=== PATIENT | female | born 2000 | race American Indian/Alaskan Native ===

== ENCOUNTER 2020-05-25 01:00 | Inpatient (IN) | payer OTHER ==
[2020-05-25] MEDS ORDERED: AMPICILLIN/NS 2 GM/100 ML 2 GM/100 ML BAG IV ONE ×2 (01:02→01:15)
[2020-05-25] MEDS ORDERED: ePHEDrine SULFATE 50 MG/1 ML INJ IV PRN ×2 (01:13→01:36)
[2020-05-25] MEDS ORDERED: MINERAL OIL 30 ML ORAL LIQD PO PRN (01:13)
[2020-05-25] MEDS ORDERED: TERBUTALINE 1 MG/1 ML INJ SUB-Q PRN (01:13)
[2020-05-25] MEDS ORDERED: LIDOCAINE (2%) 20 MG/1 ML VIAL 20 ML MDV INFILTRATI ONE (01:13)
[2020-05-25] MEDS ORDERED: LACTATED RINGERS 1,000 ML IV SCH (01:15)
[2020-05-25] MEDS ORDERED: diphenhydrAMINE 25 MG CAP PO PRN (01:40)
[2020-05-25] MEDS ORDERED: MAGNESIUM HYDROXIDE (MOM) ORAL LIQD UDC PO PRN (01:40)
[2020-05-25] MEDS ORDERED: HYDROcodone/ACETAMINOPHEN 5-325 MG TAB PO PRN (01:40)
[2020-05-25] MEDS ORDERED: ACETAMINOPHEN 325 MG TAB PO PRN (01:40)
[2020-05-25] MEDS ORDERED: PROMETHAZINE 25 MG RECT SUPP PR PRN (01:40)
[2020-05-25] MEDS ORDERED: PROMETHAZINE 25 MG TAB PO PRN (01:40)
[2020-05-25] MEDS ORDERED: LANOLIN/ZINC/DIMETHICONE (LANSINOH) 7 GM TP PRN (01:40)
[2020-05-25] MEDS ORDERED: ONDANSETRON 4 MG/2 ML INJ IV PRN (01:40)
[2020-05-25] MEDS ORDERED: WITCH HAZEL/ GLYCERIN PAD TP PRN (01:40)
--- NOTE | 2020-05-25 01:46 | History and Physical Report ---
History of Present Illness Date of examination: 05/25/20 Date of admission: 05/25/20 01:00 Chief complaint: vaginal bleeding, suspected placental abruption History of present illness: I was called to the floor for heavy acute vaginal bleeding in this term patient. I ordered two large bore IVs,type and screen, and CBC STAT I ordered the OR to be opened and for the patient to be prepared for section. See Delivery note no PNR available, PNC at [facility]. Past History - Obstetrical History : 1 Medications and Allergies Allergies Allergy/AdvReac Type Severity Reaction Status Date / Time No Known Allergies Allergy Verified 05/25/20 01:21 Active Meds: Active Medications Ephedrine Sulfate (Ephedrine Sulfate) 10 mg IV Q2M PRN PRN Reason: Hypotension Ephedrine Sulfate (Ephedrine Sulfate) 10 mg IV Q2M PRN PRN Reason: Hypotension Oxytocin/Sodium Chloride (Pitocin/Ns 30 Unit/500ml) 30 units in 500 mls @ 2 mls/hr IV TITR FEMI; Protocol Lactated Ringer's (Lactated Ringers) 1,000 mls @ 125 mls/hr IV DIRECT FEMI Oxytocin/Sodium Chloride (Pitocin/Ns 30 Unit/500ml) 30 units in 500 mls @ 40 mls/hr IV TITR FEMI; Protocol Mineral Oil (Mineral Oil) 30 ml PO QHS PRN PRN Reason: Constipation Terbutaline Sulfate (Brethine) 0.25 mg SUB-Q ONCE PRN PRN Reason: Hyperstimulation/Hypertonicity - Vital Signs Vital signs: Vital Signs Pulse Ox 79 L 05/25/20 01:06 Temp Pulse Resp BP Pulse Ox 110 H 99 05/25/20 01:36 05/25/20 01:36 Results All other labs normal. Assessment and Plan plan for c/section but patient delivered vaginally without complications preci pitously. See delivery note. Shani Whiting MD
--- NOTE | 2020-05-25 01:50 | Procedure Note ---
OB Delivery Note - Delivery Date of Delivery: 05/25/20 Surgeon: JANESSA ROBERTS Estimated blood loss: 200cc - Vaginal Delivery position: OA Intrapartum events: abruption Delivery induction: none Delivery monitor: external FHT, external uterine Delivery placenta: spontaneous Delivery cord: 3 umbilical vessels Delivery laceration: none Delivery comments: patient presented with heavy vaginal bleeding. FHT positive Patient was prepared for c/section however she delivered over an intact perineum a live female with no complications placenta delivered intact immediately following delivery, suspected abruption. Placenta sent to pathology. no lacerations requiring repair firm fundus excellent hemostasis. All sponge, needle and instrument counts correctx2 Mom and baby stable to CGuicho Roberts MD
[2020-05-25] MEDS ORDERED: OXYTOCIN DRIP 30 UNITS/500 ML BAG IV SCH (02:00)
[2020-05-25 02:03] LABS: Hematocrit 36.1 % (30.3-42.9); Hemoglobin 12.6 gm/dl (10.1-14.3); Mean Corpuscular HGB Conc 35 % (30-34); Mean Corpuscular Volume 87 fl (79-97); Platelet Count 175 K/mm3 (140-440); Red Blood Count 4.15 M/mm3 (3.65-5.03); Red Cell Distribution Width 12.8 % (13.2-15.2)
[2020-05-25] MEDS: OXYTOCIN DRIP 30 UNITS/500 ML BAG IV SCH ×2 (02:40→04:55)
[2020-05-25] MEDS: IBUPROFEN 600 MG TAB PO SCH ×2 (12:30→22:08)
[2020-05-25 20:12] LABS: Hematocrit 34.7 % (30.3-42.9); Hemoglobin 11.6 gm/dl (10.1-14.3)
[2020-05-26] MEDS: IBUPROFEN 600 MG TAB PO SCH ×3 (06:24→21:03)
--- NOTE | 2020-05-26 10:28 | Progress Note ---
Assessment and Plan A: Day 1 Elevated blood pressures, Asymptomatic P: Follow routine orders PIH labs Encouraged increased ambulation Subjective - Subjective Date of service: 05/26/20 Principal diagnosis: s/p Patient reports: appetite normal, voiding normally, pain well controlled, flatus, ambulating normally, other (Denies any headache, visual changes, N&V, epigastric pain or swelling) [place]: doing well, bottle feeding Objective - Vital Signs Latest vital signs: Vital Signs Temp Pulse Resp BP BP Pulse Ox 05/26/20 08:14 98.0 F 60 18 129/85 97 05/26/20 00:49 98.0 F 61 20 140/87 96 05/25/20 16:30 98.4 F 71 18 122/62 99 Intake and Output 05/25/20 05/26/20 05/26/20 22:59 06:59 14:59 Intake Total 600 360 120 Balance 600 360 120 Intake: Oral 240 240 120 Intake, Free Water 360 120 Other: Total, Intake Amount 240 240 120 # Voids Void 1 1 1 - Exam Breasts: Present: normal Cardiovascular: Present: Regular rate, Normal S1, Normal S2 Lungs: Present: Clear to auscultation, Normal air movement Abdomen: Present: normal appearance, soft, normal bowel sounds Uterus: Present: normal, firm, fundal height below umbilicus Extremities: Present: normal
[2020-05-26 13:54] LABS: Bilirubin,Urine NEG (Negative); Blood,Urine LG (Negative); Color,Urine Red (Yellow); Mucus,Urine 3+ /HPF; Urobilinogen,Urine < 2.0 mg/dL (<2.0)
[2020-05-26 13:55] LABS: RBC,Urine > 182.0 /HPF (0.0-6.0)
[2020-05-26 18:54] LABS: Hematocrit 34.3 % (30.3-42.9); Hemoglobin 11.5 gm/dl (10.1-14.3); Mean Corpuscular HGB Conc 34 % (30-34); Mean Corpuscular Volume 90 fl (79-97); Platelet Count 151 K/mm3 (140-440); Red Blood Count 3.82 M/mm3 (3.65-5.03); Red Cell Distribution Width 13.3 % (13.2-15.2)
[2020-05-26 19:09] LABS: Alanine Aminotransferase 14 units/L (7-56); Uric Acid 3.9 mg/dL (3.5-7.6)
--- NOTE | 2020-05-26 21:34 | Discharge Summary ---
Providers - Providers Date of Admission: 05/25/20 01:00 Date of discharge: 05/26/20 Attending physician: JANESSA ROBERTS MD Primary care physician: JANESSA ROBERTS MD Hospitalization Reason for admission: active labor Delivery: Episiotomy: none Laceration: none Other procedures: none complications: other (elevated blood pressures; resolved) Discharge diagnosis: IUP at term delivered baby: female Condition at discharge: Good Disposition: DC-01 TO HOME OR SELFCARE Plan - Provider Discharge Summary Activity: routine, no sex for 6 weeks, no heavy lifting 4 weeks, no strenuous exercise Diet: routine Instructions: routine Additional instructions: [] Smoking cessation referral if applicable(refer to patient education folder for contact #) [] Refer to [facility]'s [facility] Booklet Call your doctor immediately for: * Fever > 100.5 * Heavy vaginal bleeding ( >1 pad per hour) * Severe persistent headache * Shortness of breath * Reddened, hot, painful area to leg or breast * Drainage or odor from incision. * Keep incision clean and dry at all times and follow doctor's instructions regarding bathing/showering - Follow up plan Follow up: JANESSA ROBERTS MD [Primary Care Provider] - 6 Weeks Forms: [facility] Discharge Summary
[2020-05-26 22:59] VITALS: BP 129/75
== END 2020-05-26 23:15 | disposition home or self-care (01) | DRG 774 ==
LOC: LD 01:00 → OB 04:13
PROVIDERS: ADMIT Obstetrics & Gynecology; ATTEND Obstetrics & Gynecology
PROC: 10E0XZZ Delivery of Products of Conception, External Approach (ICD-10-PCS; principal; 2020-05-25)
DX: O62.3 Precipitate labor (principal); O45.93 Premature separation of placenta, unspecified, third trimester; Z37.0 Single live birth; Z20.828 Contact with and (suspected) exposure to other viral communicable diseases; Z3A.37 37 weeks gestation of pregnancy
CPT/HCPCS: 36415; 81001; 82565; 83615; 84450; 84460; 84550; 85014; 85018; 85027; 86850; 86900; 86901; 87086; 88307; G0378; J2590; U0003